=== PATIENT | female | born 1960 | race Caucasian/White ===

== ENCOUNTER → 2017-12-25 | Outpatient (CLI) | payer MEDICARE ==
[~2017-12-25] MED LIST: DIAZ-308 PO; IBUP800T37 PO; LEVO-3 PO; OMEP-137 PO; ONDA4TAB97 PO; THYR60TA25 PO
--- NOTE | 2017-12-25 09:00 | RADIOLOGY IMAGING REPORT ---
FACILITY: [facility] PATIENT NAME: Nina Pak : 1960 MR: [id number] V: [id number] EXAM DATE: ORDERING PHYSICIAN: ALEXIS CAMACHO TECHNOLOGIST: [place] [facility] [place] Nina Pak : 1960 Visit/Account:[id number] Date of Sevice: 12/25/2017 FOOT 3 VIEW LEFT Indication: Left foot pain. Comparison: None Available Findings: 3 views of the left foot were obtained. No evidence of fracture, dislocation, or acute osseous abnormality of the left foot. There is no focal soft tissue abnormality. No evidence of radiopaque foreign body. Mild degenerative changes within the foot. Moderate to large plantar calcaneal spur. IMPRESSION: 1.No acute osseous abnormality of the left foot. 2. Moderate to large plantar calcaneal spur. Report Dictated By: Dariel Laura MD at 12/25/2017 8:56 AM Report E-Signed By: Dariel Laura MD at 12/25/2017 8:57 AM [id number]
== END ==
LOC: RAD 08:21
PROVIDERS: ATTEND Nurse Practitioner Psychiatric/Mental Health
DX: M77.32 Calcaneal spur, left foot (principal)